=== PATIENT | female | born 1990 | race Caucasian/White ===

== ENCOUNTER 2025-01-11 22:21 | Emergency (ER) | payer OTHER, MEDICAID ==
[~2025-01-11] VITALS: Ht 167.6 cm; Wt 64.0 kg
[~2025-01-11 22:21] MED LIST: LEVO-65 MT
[2025-01-11 22:31] VITALS: O2SAT 99
[2025-01-11 23:11] LABS: BASOPHILS % 1.2 % (0.0-2.0); EOSINOPHILS % 1.5 % (0.0-5.0); HEMATOCRIT. 37.3 % (36.0-48.0); HEMOGLOBIN. 12.2 g/dL (12.0-16.0); LYMPHOCYTES % 31.6 % (20.0-50.0); MEAN PLATELET VOLUME 8.1 fl (7.4-10.4); MONOCYTES % 9.7 % (2.0-8.0); NEUTROPHILS % 56.0 % (40.0-76.0); PLATELET 282 x1000/uL (130-400); RED BLOOD CELL COUNT 4.30 mill/uL (4.2-5.4); RED CELL DISTRIBUTION WIDTH 13.5 % (11.6-14.6)
[2025-01-11 23:24] LABS: CREATININE 0.6 mg/dL (0.6-1.0); UREA NITROGEN BLOOD 8 mg/dL (9-23)
[2025-01-11 23:26] LABS: TROPONIN I HIGH SENSITIVITY < 4 ng/L (3.0-34)
[2025-01-11 23:46] LABS: HCG SCREEN NEGATIVE
[2025-01-12] MEDS: ACETAMINOPHEN 325MG TABLET PO ONE (01:05)
[2025-01-12] MEDS: IBUPROFEN 600MG TABLET PO ONE (01:06)
[2025-01-12] MEDS ORDERED: CYCL10TA21 MT (01:16)
[2025-01-12] MEDS ORDERED: IBUP-1455 MT (01:16)
[2025-01-12 02:46] VITALS: BP 91/51; PULSE 97; RESP 16; TEMP 36.8; O2SAT 100
== END 2025-01-12 02:48 | disposition home or self-care (01) ==
LOC: ER 22:21
DX: S09.90XA Unspecified injury of head, initial encounter (principal); Z79.899 Other long term (current) drug therapy; Z98.890 Other specified postprocedural states; X58.XXXA Exposure to other specified factors, initial encounter; Y93.89 Activity, other specified; Y92.410 Unspecified street and highway as the place of occurrence of the external cause; Y99.8 Other external cause status
CPT/HCPCS: 36415; 71045; 80048; 84484; 84703; 85025; 93005; 99285